=== PATIENT | female | born 1990 | race Caucasian/White ===

== ENCOUNTER 2019-07-13 14:13 | Emergency (ER) | payer BC, OTHER ==
[~2019-07-13] VITALS: Ht 165.1 cm; Wt 81.6 kg
[2019-07-13 14:17] VITALS: BP 120/75
[2019-07-13] MEDS ORDERED: DIAZEPAM 5 MG TAB PO ONE (14:45)
[2019-07-13] MEDS ORDERED: KETOROLAC 30 MG/ML VIAL IM ONE (14:45)
[2019-07-13] MEDS ORDERED: MORPHINE SULFATE 4 MG/ML SYR IM ONE (16:40)
[2019-07-13 18:45] VITALS: BP 118/72
== END 2019-07-13 18:45 | disposition home or self-care (01) ==
LOC: MED 14:13
DX: M54.5 Low back pain (principal)
CPT/HCPCS: 72100; 81002; 81025; 96372; 99284; J1885; J2270

== ENCOUNTER 2020-09-04 12:15 | Emergency (ER) | payer OTHER, SELFPAY ==
[~2020-09-04] VITALS: Ht 165.1 cm; Wt 81.6 kg
[2020-09-04 12:20] VITALS: BP 125/73
--- NOTE | 2020-09-04 12:29 | NUR ---
PT AMBULATED TO BED 2.
--- NOTE | 2020-09-04 12:35 | NUR ---
30 y/o F brought in from home with c/c body aches. Patient A&Ox4, ambulatory, and reports associated non-productive cough, loss of appetite, nausea, neck pain, chills and headache since 09/01/2020. Patient states pain 5/10 due to body aches. Patient denies any recent Covid vaccinations or exposure to Covid + people; reports traveling for past two weeks but mask compliant. Patient denies any vomiting, fever, SOB, abdominal/back pain. LMP 08/02/20. Last BM: this AM; hard/"little amount." Patient took Aleve for past few days with minor relief. Patient visited [facility], advised to visit ER and received a Covid test, however, did not stay for entire treatment and test results. PMH/Sx/Meds: Denies MARC
--- NOTE | 2020-09-04 12:45 | NUR ---
Dr. Fish is evaluating patient at bedside.
--- NOTE | 2020-09-04 13:02 | NUR ---
Urine sample collected, walked to lab and handed to CPT. Anna
[2020-09-04] MEDS: cephALEXin 500 MG CAP PO ONE (13:08)
[2020-09-04] MEDS ORDERED: ONDA-24 PO (13:16)
[2020-09-04] MEDS ORDERED: CEPH-588 PO (13:16)
--- NOTE | 2020-09-04 13:23 | NUR ---
Patient discharged with v/s stable. Written and verbal after care instructions given and explained. Patient alert, oriented and verbalized understanding of instructions. Ambulatory with steady gait. All questions addressed prior to discharge. ID band removed. Patient advised to follow up with PMD. Rx of KEFLEX & ZOFRAN given. Patient educated on indication of medication including possible reaction and side effects. Opportunity to ask questions provided and answered.
[2020-09-04 13:24] VITALS: BP 125/73
== END 2020-09-04 13:23 | disposition home or self-care (01) ==
LOC: MED 12:15
DX: N39.0 Urinary tract infection, site not specified (principal); M79.10 Myalgia, unspecified site
CPT/HCPCS: 81002; 81025; 87086; 99283